=== PATIENT | male | born 1990 | race Two or more races ===

== ENCOUNTER 2017-01-17 14:33 | Emergency (ER) | payer OTHER ==
--- NOTE | 2017-01-17 15:07 | EDPHY ---
H & P Stated Complaint: 1 WK PAIN WITH URINATION "THINKS HE HAS GONORRHEA" Time Seen by Provider: 01/17/17 14:42 HPI/ROS: Chief complaint: Pain with urination History of present illness: This is a 26-year-old male who presents to the emergency department for evaluation and treatment of pain with urination. Patient reports the onset of symptoms over the last week. He states when he urinates he does have pain with urination and the pain radiates towards the testicles. He denies actual testicular pain or swelling. He further denies abdominal pain, nausea, vomiting or diarrhea. He is concerned he has gonorrhea as a sexual partner was recently diagnosed with gonorrhea. - Personal History Current Tetanus/Diphtheria Vaccine: Unsure - Medical/Surgical History Hx Asthma: No Hx Chronic Respiratory Disease: No Hx Diabetes: No Hx Cardiac Disease: No Hx Renal Disease: No Hx Cirrhosis: No Hx Alcoholism: No Hx HIV/AIDS: No Hx Splenectomy or Spleen Trauma: No Other PMH: DENIES1 - Social History Smoking Status: Never smoked - Physical Exam Exam: General Appearance: Alert, nontoxic. Eyes: Pupils equal and round no injection. Respiratory: Chest is nontender, lungs are clear to auscultation. Cardiac: regular rate and rhythm. Gastrointestinal: Abdomen is soft and nontender, no masses, bowel sounds normal. Genitourinary: No urethral discharge. No rash on the penis or scrotum. The testicles and surrounding cord structures are nontender, non edematous. No hernias appreciated. No inguinal adenopathy. Cremaster reflex is present. Musculoskeletal: Extremities have full range of motion and are nontender. Skin: No rashes or lesions. Constitutional: Initial Vital Signs Temperature (C) 36.3 C 01/17/17 14:36 Heart Rate 80 01/17/17 14:36 Respiratory Rate 17 01/17/17 14:36 Blood Pressure 146/90 H 01/17/17 14:36 O2 Sat (%) 95 01/17/17 14:36 O2 Delivery Mode Room Air Allergies/Adverse Reactions: No Known Allergies Allergy (Verified 01/17/17 14:36) Home Medications: Medication Instructions Recorded Doxycycline Hyclate 100 mg PO BID 10 Days 01/17/17 Medical Decision Making ED Course/Re-evaluation: Patient seen under the supervision of my secondary supervising physician Dr. Fermin Arevalo. Patient presents to the emergency department for painful urination. Possible STD contact. He is nontoxic. Physical exam is benign. Urinalysis is unremarkable. Gonorrhea Chlamydia cultures are pending. He is treated with Rocephin and doxycycline. He is referred to primary care doctor for recheck. I further discussed with him that he needs complete STD screening as we do not screen for all STDs. He has voiced understanding. Return precautions are given. Differential Diagnosis: Included but not limited to urethritis, cystitis, pyelonephritis, orchitis, epididymitis - Data Points Laboratory Results: 01/17/17 01/17/17 15:05 15:05 Urine Color Pending Urine Appearance Pending Urine pH Pending Ur Specific Wallace Pending Urine Protein Pending Urine Ketones Pending Urine Blood Pending Urine Nitrate Pending Urine Bilirubin Pending Urine Urobilinogen Pending Ur Leukocyte Esterase Pending Urine RBC Pending Urine WBC Pending Ur Epithelial Cells Pending Urine Glucose Pending C.trachomatis RNA (TMA) Pending N.gonorrhoeae RNA (TMA) Pending Departure - Departure Disposition: Home, Routine, Self-Care Clinical Impression: Urethritis Condition: Good Instructions: Nonspecific Urethritis in Men (ED), Gonorrhea (ED) Additional Instructions: Follow-up with a primary care doctor for recheck You must obtain testing for all STDs, we did not test for them all in the emergency department, a primary care doctor or STD clinic will need to test you for them If you are diagnosed with an STD you should notify all sexual partners so they can be tested and treated If symptoms worsen or new symptoms develop return to the emergency room for recheck Referrals: NONE *PRIMARY CARE P,. [Primary Care Provider] - As per Instructions [facility],. [Clinic] - As per Instructions Prescriptions: Doxycycline Hyclate 100 mg PO BID 10 Days
[2017-01-17] MEDS ORDERED: DOXYCYCLINE HYCLATE 100 MG CAP/TAB PO ONE (15:36)
[2017-01-17] MEDS ORDERED: CEFTRIAXONE IM 350 MG/ML SYRINGE IM ONE (15:37)
[2017-01-17 15:40] LABS: COLOR YELLOW; LEUKOCYTE ESTERASE,URINE NEGATIVE (NEGATIVE); NITRITE,URINE NEGATIVE (NEGATIVE)
[2017-01-17 15:44] LABS: GRANULAR CASTS 15-25 /lpf (0-1); MUCUS 2+ /lpf (NONE-1+)
[2017-01-17 16:12] VITALS: BP 130/80; PULSE 79; RESP 20; TEMP 97.9; O2SAT 96
[2017-01-19 14:12] LABS: CHLAMYDIA AMPLIFICATION GENPRB NEGATIVE (NEGATIVE)
== END 2017-01-17 16:12 | disposition home or self-care (01) ==
DX: N34.2 Other urethritis (principal); B96.89 Other specified bacterial agents as the cause of diseases classified elsewhere
CPT/HCPCS: J0696

== ENCOUNTER 2017-06-19 18:08 | Emergency (ER) | payer OTHER ==
[2017-06-19 18:17] VITALS: BP 126/93; PULSE 114; RESP 18; TEMP 98.6; O2SAT 95
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
== END 2017-06-19 18:45 | disposition home or self-care (01) ==
DX: T18.9XXA Foreign body of alimentary tract, part unspecified, initial encounter (principal); X58.XXXA Exposure to other specified factors, initial encounter; Y99.8 Other external cause status; Y93.55 Activity, bike riding

== ENCOUNTER 2017-12-27 16:16 | Observation (INO) | payer SELFPAY ==
[2017-12-27] MEDS ORDERED: NS 1,000 ML IV ONE (16:26)
[2017-12-27] MEDS ORDERED: ONDANSETRON 4 MG/2 ML VIAL IVP ONE (16:26)
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
[2017-12-27 16:33] LABS: PLATELET COUNT 251 10^3/uL (150-400)
--- NOTE | 2017-12-27 16:43 | ASMTCAGE ---
CAGE Do you feel you ought to Answers: Yes cut down on your drinking or drug use? Do people annoy you by Answers: No criticizing your drinking or drug use? Do you feel guilty about Answers: Yes your drinking or drug use? Do you drink or use drugs Answers: No first thing in the morning ([employer])? Additional Comments Pt states he drinks a few beers/tequila a few times/week. He also admits to occas cocaine/marijuana use. Pt states he "sometimes" feels he ought to cut down and "sometimes" feels guilty, "like today I made a big mistake." Date Signed: 12/27/2017 04:42 PM Electronically Signed By:Hillary Post RN
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
[2017-12-27] MEDS ORDERED: DILTIAZEM 125 MG in D5W 125 ML IV ONE (18:25)
[2017-12-27 18:33] LABS: INR 0.97 (0.83-1.16); PROTIME(PATIENT) 13.1 SEC (12.0-15.0)
[2017-12-27] MEDS ORDERED: ONDANSETRON 4 MG/2 ML VIAL IVP PRN (18:45)
[2017-12-27] MEDS ORDERED: TETANUS, DIPHTHERIA TOX (7YR+) 0.5 ML INJ IM ONE (18:55)
[2017-12-27] MEDS ORDERED: LORazepam 2 MG/ML INJ IVP PRN (18:56)
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
[2017-12-27] MEDS: THIAMINE HCL 500 MG in NS 100 ML IV SCH (20:28)
[2017-12-27] MEDS: LR 1,000 ML IV SCH (20:28)
[2017-12-27] MEDS: ACETAMINOPHEN 500 MG TAB PO SCH (20:28)
[2017-12-27] MEDS: ceFAZolin 2 GM/SWFI 2 GM/20 ML SYR IVP SCH (22:00)
[2017-12-27] MEDS ORDERED: ceFAZolin 2 GM in NS 50 ML IV SCH (22:00)
[2017-12-27] MEDS: KETOROLAC 30 MG/1 ML SDV IVP SCH (23:28)
[2017-12-28] MEDS: ACETAMINOPHEN 500 MG TAB PO SCH ×2 (03:22→12:09)
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
[2017-12-28 04:58] LABS: PLATELET COUNT 193 10^3/uL (150-400)
[2017-12-28] MEDS: KETOROLAC 30 MG/1 ML SDV IVP SCH (05:31)
[2017-12-28] MEDS: ceFAZolin 2 GM/SWFI 2 GM/20 ML SYR IVP SCH (05:31)
[2017-12-28] MEDS: LR 1,000 ML IV SCH (06:36)
[2017-12-28 07:51] VITALS: BP 141/91
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
[2017-12-28] MEDS: THIAMINE HCL 500 MG in NS 100 ML IV SCH (11:41)
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
--- NOTE | 2017-12-28 13:09 | GDS ---
[f rep st] DISCHARGE SUMMARY This discharge summary is dictated in anticipation of discharge later this morning. DISCHARGE DISPOSITION: Home to routine self care. CONDITION: Good. DIET: No restrictions, but I recommend mechanically soft diet. MEDICATIONS AT DISCHARGE: Tylenol 1000 mg every 8 hours, Toradol 10 mg every 6 hours, Zofran 4 mg ODT p.r.n. nausea, and Augmentin 875 mg twice a day. RESTRICTIONS: He is not to blow his nose. FOLLOWUP: He is to call Dr. Chilo Enriquez for a followup appointment in 4-5 days. He is to see Dr. Brett Vicente/Marianela Pepper/Kennedy Peck as needed from a trauma standpoint. HOSPITAL COURSE: The patient was admitted and observed overnight. His blood alcohol was [address] of his neck was normal, but I could not clear him because of his intoxication. Now his intoxication is resolved. His neck is nontender and his C-collar was removed. He is being seen by Ophthalmology at this point to make certain that there are not any issues with the orbit. He has a complex trimalleolar fracture as well as a partial orbital fracture by CT scan. He has no other findings. If he is not found to have any urgencies from Ophthalmology, he will be dismissed today. /[id number]/MODL MTDD
[2017-12-30] MEDS ORDERED: THIAMINE HCL 100 MG TAB PO SCH (09:00)
== END 2017-12-28 13:15 | disposition home or self-care (01) ==
LOC: EDUNIT# → F2N 20:10
PROVIDERS: ADMIT Surgery; ATTEND Surgery
PROC: 0HQ1XZZ Repair Face Skin, External Approach (ICD-10-PCS; principal; 2017-12-27)
DX: S02.602A Fracture of unspecified part of body of left mandible, initial encounter for closed fracture (principal); S02.81XA Fracture of other specified skull and facial bones, right side, initial encounter for closed fracture; S02.40CA Maxillary fracture, right side, initial encounter for closed fracture; S02.40EA Zygomatic fracture, right side, initial encounter for closed fracture; F10.129 Alcohol abuse with intoxication, unspecified; V18.0XXA Pedal cycle driver injured in noncollision transport accident in nontraffic accident, initial encounter
CPT/HCPCS: 80305; 92523-GN; 96374; 97161-GP; 97166-GO; G0378; G0480; J0690; J1885; J2405; J3411

== ENCOUNTER 2018-01-06 13:49 | Day surgery (SDC) | payer OTHER ==
[2018-01-06] MEDS ORDERED: LR 1,000 ML IV ONE (14:03)
[2018-01-06] MEDS ORDERED: LIDOCAINE 1% 2 ML INJ ID PRN (14:03)
[2018-01-06] MEDS ORDERED: LIDO/EPI 1% **for epidural** 30 ML SDV ONE (14:41)
[2018-01-06] MEDS ORDERED: BACITRACIN OPHTHALMIC OINTMENT ONE ×2 (14:43→16:08)
[2018-01-06] MEDS ORDERED: LIDOCAINE 1% 300 MG/30 ML SDV ONE (14:44)
[2018-01-06] MEDS ORDERED: OXYMETAZOLINE 30 ML NASAL SPRAY ONE (14:44)
[2018-01-06] MEDS ORDERED: EPINEPHrine 1 MG/ML INJ ONE (14:45)
[2018-01-06] MEDS ORDERED: BALANCED SALT IRRIG SOLN 15 ML OPHT.BTL ONE (14:45)
[2018-01-06] MEDS ORDERED: MIDAZOLAM 2 MG/2 ML VIAL IVP ONE (15:22)
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
[2018-01-06] MEDS ORDERED: ceFAZolin 2 GM/SWFI 2 GM/20 ML SYR IVP ONE (15:24)
--- NOTE | 2018-01-06 15:27 | PDHPUP ---
History & Physical Update H&P update statement: This history and physical update is based on an assessment of the patient which was completed after admission or registration (within 24 hours), but prior to the surgery/procedure. H&P update: H&P reviewed & patient examined, no change in patient's condition since H&P completed
[2018-01-06] MEDS ORDERED: fentaNYL 100 MCG/2 ML INJ ONE ×4 (15:32→21:03)
[2018-01-06] MEDS ORDERED: REMIFENTANIL HCL 1 MG VIAL ONE ×2 (15:32→17:42)
[2018-01-06] MEDS ORDERED: PROPOFOL/EMULSION 500 MG/50 ML BOTTLE IV ONE ×2 (15:34→17:42)
[2018-01-06] MEDS ORDERED: CHLORHEXIDINE GLUCONATE 15 ML UDL ONE (18:41)
[2018-01-06] MEDS ORDERED: MEPERIDINE 25 MG/ML SYR IVP PRN (19:08)
[2018-01-06] MEDS ORDERED: NALOXONE HCL 0.4 MG/ML INJ IVP PRN (19:08)
[2018-01-06] MEDS ORDERED: HYDROCODONE/APAP 5/325 TAB PO PRN (19:08)
[2018-01-06] MEDS ORDERED: ONDANSETRON 4 MG/2 ML VIAL IVP PRN (19:08)
[2018-01-06] MEDS ORDERED: oxyCODONE IR 5 MG TAB PO PRN (19:08)
[2018-01-06] MEDS ORDERED: PROMETHAZINE HCL 25 MG/ML INJ IVP PRN (19:08)
[2018-01-06] MEDS ORDERED: MEPERIDINE 25 MG/ML SYR ONE (19:51)
[2018-01-06] MEDS: fentaNYL 100 MCG/2 ML INJ IVP PRN ×4 (20:04→21:20)
--- NOTE | 2018-01-06 20:07 | POSTOPPROG ---
Post Op Note Date of Operation: 01/06/18 Surgeon: Chilo Enriquez Anesthesiologist: Rodney Anesthesia: Epidural Pre-op Diagnosis: R ZMC and orbital floor Post-op Diagnosis: R ZMC and orbital floor Indication: R ZMC and orbital floor Procedure: R ZMC and orbital floor ORIF w multiple approaches Findings: R ZMC and orbital floor Inf/Abcess present in the surg proc area at time of surgery?: No Depth: Organ Space EBL: 50-100 Total fluids administered: 1.5 Complications: no
[2018-01-06] MEDS ORDERED: HYDROCODONE/APAP 5/325 TAB ONE (20:14)
[2018-01-06] MEDS ORDERED: HYDROmorphONE/DILAUDID 2 MG/ML INJ ONE (21:03)
[2018-01-06] MEDS: HYDROmorphONE/DILAUDID 2 MG/ML INJ IVP PRN ×2 (21:06→21:21)
[2018-01-06 21:34] VITALS: BP 146/93
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
== END 2018-01-06 21:34 | disposition home or self-care (01) ==
LOC: FSGY 13:49
PROVIDERS: ATTEND Otolaryngology
PROC: 0NSM04Z Reposition Right Zygomatic Bone with Internal Fixation Device, Open Approach (ICD-10-PCS; principal; 2018-01-06 15:30)
DX: S02.402 Zygomatic fracture, unspecified side (principal); S02.609A Fracture of mandible, unspecified, initial encounter for closed fracture; V18.0XXA Pedal cycle driver injured in noncollision transport accident in nontraffic accident, initial encounter; Y93.55 Activity, bike riding
CPT/HCPCS: C1713; J0171; J0690; J1170; J2175; J2250; J2704; J3010

== ENCOUNTER 2018-12-02 01:21 | Emergency (ER) | payer OTHER ==
[2018-12-02] MEDS ORDERED: NS 1,000 ML IV ONE (01:26)
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
[2018-12-02 01:39] LABS: PLATELET COUNT 240 10^3/uL (150-400)
[2018-12-02] MEDS ORDERED: ONDANSETRON 4 MG/2 ML VIAL IVP ONE (01:44)
[2018-12-02] MEDS ORDERED: ONDANSETRON 4 MG/2 ML VIAL ONE (01:45)
[2018-12-02] MEDS ORDERED: TDAP ADULT 0.5 ML INJ (BOOSTRIX) IM ONE (04:33)
[2018-12-02 04:58] VITALS: BP 141/76
== END 2018-12-02 04:58 | disposition home or self-care (01) ==
LOC: EDUNIT# → EDSEX
DX: F10.920 Alcohol use, unspecified with intoxication, uncomplicated (principal); S00.81XA Abrasion of other part of head, initial encounter; Y04.8XXA Assault by other bodily force, initial encounter; Z23 Encounter for immunization; Y90.7 Blood alcohol level of 200-239 mg/100 ml
CPT/HCPCS: 96374; G0480; J2405